=== PATIENT | male | born 1965 | race Caucasian/White ===

== ENCOUNTER → 2017-05-20 | Outpatient (CLI) | payer OTHER ==
[2017-05-20 12:19] LABS: BASO ABS # 0.05 K/uL (0-0.2); COMPLETE YES; EOS % 0.8 %; HEMATOCRIT 43.8 % (42-52); LYMPH % 24.8 %; LYMPH ABS # 1.24 K/uL (1.2-3.4); MEAN CELL VOLUME 88.7 fL (80-100); MEAN CORPUSCULAR HEMOGLOBIN 31.6 pg (25-34); MEAN CORPUSCULAR HGB CONC 35.6 g/dl (32-36); MEAN PLATELET VOLUME 9.9 fL (7.4-10.4); MONO % 9.6 %; NEUT % 63.8 %; PLATELET COUNT 228 K/uL (130-400); RED BLOOD COUNT 4.94 M/uL (4.7-6.1); WHITE BLOOD COUNT 5.01 K/uL (4.8-10.8)
[2017-05-20 12:46] LABS: BLOOD UREA NITROGEN 18 mg/dl (7-18); BUN/CREATININE RATIO 14.7 (10-20); CALCIUM 8.9 mg/dl (8.5-10.1); CARBON DIOXIDE 29 mmol/L (21-32); CHLORIDE 106 mmol/L (98-107); GLUCOSE 97 mg/dl (70-99); POTASSIUM 4.1 mmol/L (3.5-5.1); SODIUM 139 mmol/L (136-145)
== END | disposition home or self-care (01) ==
LOC: C.CPL 10:05
PROVIDERS: ATTEND Orthopaedic Surgery
DX: Z01.810 Encounter for preprocedural cardiovascular examination (principal); Z01.812 Encounter for preprocedural laboratory examination; M75.122 Complete rotator cuff tear or rupture of left shoulder, not specified as traumatic

== ENCOUNTER → 2017-06-27 | Day surgery (SDC) | payer OTHER ==
[2017-06-03 15:00] VITALS: Ht 170.2 cm; Wt 78.2 kg
[~2017-06-27] VITALS: Ht 170.2 cm; Wt 78.2 kg
[~2017-06-27] MED LIST: ACET-1311 PO; ATROPINE SULFATE 0.1 MG/ML 5ML SYR IV PRN; BUPIVACAINE/EPINEPHRINE 0.25% 1:200,000 30 ML VIAL ONE; BUPIVACAINE/EPINEPHRINE 0.5% MPF 1:200,000 30 ML VIAL ONE; CEFAZOLIN 2000MG IV PUSH 10 ML IV SCH; DEXAMETHASONE SOD INJ 4 MG/ML VIAL ONE; DICL-201 PO; EpHEDrine SULFATE INJ 50 MG/ML AMP IV PRN; EpINEphrine INJ 1MG/ML AMP 1 MG/ML AMP ONE; FENTANYL CITRATE INJ 50 MCG/1 ML 2 ML VIAL IV PRN; FENTANYL CITRATE INJ 50 MCG/1 ML 2 ML VIAL ONE; KETO10TA PO; KETOROLAC TROMETHAMINE 30 MG/ML VIAL IV. PRN; LACTATED RINGER'S 1000ML 1,000 ML IV SCH; LIDOCAINE HCL 2% 2 ML VIAL (20MG/ML) ONE; MIDAZOLAM HCL 1 MG/ML 2ML VIAL ONE; ONDANSETRON INJ 2 MG/ML 2 ML VIAL IV PRN; ONDANSETRON INJ 2 MG/ML 2 ML VIAL ONE; OXYC-57 PO; OXYCODONE/ACETAMINOPHEN 5-325 TAB PO PRN; PROPOFOL IV EMULSION 10 MG/ML 20 ML VIAL IV ONE; SODIUM CHLORIDE 0.9% 1000ML 1,000 ML IV SCH
--- NOTE | 2017-06-27 07:02 | History & Physical Bridge - [place] ---
H&P Re-Evaluation Bridge Note: I have examined the patient, reviewed the History & Physical and in the interval since the performance of the History & Physical I have noted the following changes of clinical significance: No changes noted
[2017-06-27] MEDS: LIDOCAINE HCL 1% 20 ML VIAL ONE (10:55)
[2017-06-27 11:15] VITALS: TEMP 36.3
--- NOTE | 2017-06-27 11:17 | Discharge Instructions-SurgCtr ---
Discharge Instructions Date of Service Jun 27, 2017. Visit Reason for Visit: Full Thickness Rotator Cuff Tear Discharge Discharge Diagnosis / Problem: SAME ABOVE Discharge Goals Goal(s): Decrease discomfort, Improve function Medications Stopped Medications Name(s): Voltaren tablets-stopped 1 week ago. Restart Stopped Medication(s): MAY RESTART WHEN FINISHED WITH THE TORADOL TAKE TORADOL EVERY 8 HOURS WITH FOOD Activity Recommendations Activity Limitations: as noted below Lifting Limitations: until after follow-up appointment Exercise/Sports Limitations: until after follow-up appointment Shower/Bathe: tomorrow Anesthesia . Post Anesthesia Instructions: If you have had General Anesthesia or IV Sedation: * Do not drive today. * Resume driving when surgeon permits. * Do not make important decisions or sign legal documents today. * Call surgeon for: 1. Temperature elevations greater than 101 degrees F. 2. Uncontrollable pain. 3. Excessive bleeding. 4. Persistent nausea and vomiting. 5. Medication intolerance (nausea, vomiting or rash). * For nausea and vomiting use only clear liquids such as: tea, soda, bouillon until nausea subsides, then gradually increase diet as tolerated. * If you have any concerns or questions, call your surgeon's office. If physician is unavailable and it is an emergency, call 911 or go to the nearest emergency room. . Instructions / Follow-Up Instructions / Follow-Up MEDICATIONS: * Resume previous medications unless instructed otherwise by your surgeon. * Always take pain medication on a full stomach or with food to avoid upset stomach. * Do not drink alcohol or drive while taking narcotics. * Ibuprofen or Tylenol may be taken if narcotic not needed. SPECIAL CARE INSTRUCTIONS: __ None _X_ Keep extremity elevated and iced x 48 hours; apply ice 20-30 minutes 8-10 times/day. May remove at night. _X_ Sling (MAY REMOVE AFTER 48 HOURS ONLY TO SHOWER AND FOR THERAPY) _X_24 hrs/day __ Remove at night __ Shoulder Immobilizer __ 24 hrs/day __ Remove at night _X_ Dressing __ Maintain until seen in office, may shower with plastic over site _X_ Remove dressings in 24-48 hours and then may shower _X_ Cover incisions with band-aids after showering _X_ Do not remove steri-strips (THEY ARE IN THE ARMPIT AND THEY MAY FALL OFF ON THEIR OWN) Call physician if chills or temperature rises above 102 degrees or pain unrelieved by prescribed pain medications at . . Diet Recommendations Home Diet: no limitations Fluid Restriction: None Procedures Procedures Performed: Left Shoulder Arthroscopy With Extensive Debridement Distal Clavicle Resection, Acromioplasty, Open Biceps Tenodesis, Rotator Cuff Repair Pending Studies Studies pending at discharge: no Work Instructions Return To Work: after follow-up Lifting Limitations: NO LIFTING WITH LEFT ARM Medical Emergencies . Who to Call and When: Medical Emergencies: If at any time you feel your situation is an emergency, please call 911 immediately. . Non-Emergent Contact Non-Emergency issues call your: Primary Care Provider Call Non-Emergent contact if: you have a fever, temperature is above 101.5 . . "Provider Documentation" section prepared by Yovani Astorga. .
--- NOTE | 2017-06-27 11:28 | Anesthesia Progress Nt - [facility] ---
Anesthesia Post Op Note Date & Time Jun 27, 2017 at 11:28 Vital Signs Pain Intensity: 0 Vital Signs Past 12 Hours Date Time Temp Pulse Resp B/P (MAP) Pulse Ox O2 Delivery O2 Flow Rate FiO2 06/27/17 11:15 36.3 16 145/101 (116) 97 Room Air 06/27/17 09:42 88 14 99 06/27/17 09:42 90 06/27/17 09:40 150/96 06/27/17 09:37 86 06/27/17 09:37 86 13 100 06/27/17 09:36 85 06/27/17 09:36 85 14 99 06/27/17 09:35 144/98 06/27/17 09:31 83 11 99 06/27/17 09:31 84 06/27/17 09:30 144/94 06/27/17 09:26 74 06/27/17 09:26 75 11 99 06/27/17 09:25 143/92 06/27/17 09:24 78 06/27/17 09:24 76 12 99 06/27/17 09:20 127/85 06/27/17 09:19 74 06/27/17 09:19 72 10 99 06/27/17 09:15 125/98 06/27/17 09:14 75 10 98 06/27/17 09:14 73 06/27/17 09:11 136/102 06/27/17 09:09 73 11 100 06/27/17 09:09 70 6 136/102 (113) 96 Room Air 06/27/17 09:09 78 06/27/17 09:04 67 10 98 06/27/17 09:04 68 06/27/17 08:59 64 06/27/17 08:13 36.6 68 16 131/112 (118) 96 Room Air Notes Mental Status: alert / awake / arousable, participated in evaluation Pt Amnestic to Procedure: Yes Nausea / Vomiting: adequately controlled Pain: adequately controlled Airway Patency, RR, SpO2: stable & adequate BP & HR: stable & adequate Hydration State: stable & adequate Anesthetic Complications: no major complications apparent Block working well in pacu
[2017-06-27 11:56] VITALS: BP 148/95; PULSE 86; O2SAT 96
--- NOTE | 2017-06-27 15:39 | [facility] Post Operative Brief Note ---
Immediate Operative Summary Operative Date Jun 27, 2017. Pre-Operative Diagnosis Biceps Tendonitis, Acromioclavicular Joint Arthritis Left Shoulder Post-Operative Diagnosis same as preop Procedure(s) Performed Left Shoulder Arthroscopy With Extensive Debridement Distal Clavicle Resection, Acromioplasty, Open Biceps Tenodesis, Rotator Cuff Repair Surgeon Dr. Arvizu Mathematical Statistician Surgeon(s) MARJAN Rubin Estimated Blood Loss 5ml Findings as above Specimens none per surgeon Complication(s) None Disposition Recovery Room / PACU
--- NOTE | 2017-06-27 19:38 | OPERATIVE REPORT ---
DATE OF OPERATION: 06/27/2017 PREOPERATIVE DIAGNOSIS: Scar tissue formation, biceps tendinopathy and acromioclavicular joint arthritis of the left shoulder. POSTOPERATIVE DIAGNOSIS: Scar tissue formation. biceps tendinopathy, acromioclavicular joint arthritis and small rotator cuff tear of the left shoulder. PROCEDURE: Left shoulder diagnostic arthroscopy with extensive debridement, distal clavicle resection, acromioplasty and small rotator cuff repair and open subpectoral biceps tenodesis. SURGEON: Jf Arvizu DO. TYING MACHINE OPERATOR LUMBER: Yovani Astorga PA-C, whose assistance was necessary for positioning the arm and helping with instrumentation. ANESTHESIA: Sedation with a left interscalene nerve block. COMPLICATIONS: None. CONDITION: Stable to PACU. INDICATIONS: Carroll is a pleasant 51-year-old male who underwent a rotator cuff repair in 2009 at an outside institution. He says his shoulder never felt right since. MRI showed a generally intact rotator cuff, but he had a lot of biceps pain and a lot of AC joint pain. He elected to undergo arthroscopy. OPERATION AND FINDINGS: On 06/27/2017, he arrived at [facility] for the above procedure. He was seen in the preoperative holding area and the operative extremity was identified and signed. He was then given a preoperative antibiotic and a left interscalene nerve block. He was taken back to the operating room, laid on the table in supine position and given basic sedation. The left shoulder was then prepped and draped in sterile fashion. Time-out was done and the patient and operative extremity was properly identified. A scope was introduced in the posterior portal. Diagnostic arthroscopy showed no cartilage damage to the humeral head or the glenoid. There was a little fraying of the anterior labrum. From the articular side, the rotator cuff looked grossly intact. There was some redness and inflammation on the dorsal aspect of the biceps tendon. An anterior portal was made. A shaver was used to do light debridement of the intraarticular structures and the biceps tendon was arthroscopically tenotomized for later tenodesis. The scope was then put into the subacromial space. A lateral portal was made. A shaver was used to do a complete subacromial and subdeltoid bursectomy. An ablator was used to tease the coracoacromial ligament off the undersurface of the acromion and a 5-0 jocelynn was used to complete an acromioplasty. There had been a prior acromioplasty, but especially towards the distal clavicle there was still large bone spurs. This opened up the subacromial space. Once that was opened, I did see a small rotator cuff tear. It was a vertical tear in the center of the supraspinatus. It did not appear to be torn off the footprint, but it did go through the majority of the rotator cuff. An additional anterolateral portal was made and Samantha cannula was placed. I decided to fix this with 2 FiberWire margin convergence sutures. These were passed with the use of a suture lasso. This brought the cuff defect together nicely. Multiple pictures were taken. Attention was then turned to the distal clavicle. Through the anterior portal, a shaver and ablator were used to skeletonize the distal clavicle. A 5-0 jocelynn was then used to resect the distal 5 mm from the clavicle. Complete resection was checked under direct visualization. A final diagnostic arthroscopy showed no additional pathology. Arthroscopic instruments were removed from the shoulder and attention was turned to an open biceps tenodesis. A small incision was made over the inferior border of the pec major. Dissection was taken down through the fascia and the long head of biceps tendon was delivered out of the wound. The tendon was then whip stitched at the anticipated level of tenodesis and the remainder of the tendon was discarded. A 6 mm hole was drilled in the bicipital groove and the biceps tendon was tenodesed with an Arthrex biceps button that was passed through the posterior cortex and flipped in a tension slide technique to deliver the tendon into the 6 mm hole. This gave good fixation. The wound was then irrigated and closed with 3-0 Vicryl and running 3-0 Monocryl. Steri-strips were placed. Portal sites were closed with 3-0 nylon. He was then placed in a soft dressing and regular arm sling. He was then extubated, transferred to a litter and taken to the postanesthesia care unit in stable condition. He tolerated the procedure well. I attest to the content of the Intraoperative Record and any orders documented therein. Any exception s are noted below.
== END | disposition home or self-care (01) ==
LOC: X.SURG 07:39
PROVIDERS: ATTEND Orthopaedic Surgery
DX: M75.22 Bicipital tendinitis, left shoulder (principal); M75.102 Unspecified rotator cuff tear or rupture of left shoulder, not specified as traumatic; M19.012 Primary osteoarthritis, left shoulder; Z90.89 Acquired absence of other organs; I10 Essential (primary) hypertension; Z88.5 Allergy status to narcotic agent; K21.9 Gastro-esophageal reflux disease without esophagitis; Z87.81 Personal history of (healed) traumatic fracture; L90.5 Scar conditions and fibrosis of skin